=== PATIENT | male | born 1935 | race Caucasian/White ===

== ENCOUNTER 2016-07-30 13:11 | Outpatient (CLI) | payer OTHER, MEDICARE ==
--- NOTE | 2016-07-30 14:03 | DIAGNOSTIC IMAGING REPORT ---
PROCEDURE: XR CHEST 2 VIEW INDICATION: HISTORY OF SMOKING TECHNIQUE: PA and lateral view. COMPARISON: Chest x-ray 04/11/2014 FINDINGS: Lungs are clear. Mild cardiomegaly. Mediastinum and pulmonary vessels are normal. Mild degenerative changes of the spine. IMPRESSION: 1. Mild cardiomegaly
[2016-08-18] MEDS ORDERED: ASPIRIN325 MG PO (18:23)
[2016-08-18] MEDS ORDERED: CLOPIDOGREL75 MG PO (18:24)
[2016-08-18] MEDS ORDERED: TOPROL XL50 MG PO (18:24)
[2016-08-18] MEDS ORDERED: METFORMIN HCL500 MG PO (18:24)
[2016-08-18] MEDS ORDERED: TAMSULOSIN HCL0.4 MG PO (18:25)
[2016-08-18] MEDS ORDERED: LIPITOR20 MG PO (18:26)
[2016-08-18] MEDS ORDERED: FINASTERIDE5 MG PO (18:26)
[2016-08-18] MEDS ORDERED: BACLOFEN10 MG PO (18:27)
[2016-08-18] MEDS ORDERED: VITAMIN D-31000 UNIT PO (18:28)
[2016-08-18] MEDS ORDERED: TYLENOL325 MG PO (18:28)
[2016-08-18] MEDS ORDERED: LORATADINE10 MG PO (18:28)
[2016-08-18] MEDS ORDERED: LUTEIN1 CAP PO (18:29)
[2016-08-18] MEDS ORDERED: NORTRIPTYLINE H10 MG PO (18:29)
[2016-08-18] MEDS ORDERED: COQ-10100 MG PO (18:29)
[2016-08-18] MEDS ORDERED: PRESERVISION/LUTEIN PO (18:32)
[2016-08-18] MEDS ORDERED: LOTREL1 CA1 PO (18:33)
== END 2016-07-30 23:00 ==
LOC: XR SRH 13:11
DX: Z87.891 Personal history of nicotine dependence (principal); I51.7 Cardiomegaly

== ENCOUNTER 2016-08-23 07:57 | Day surgery (SDC) | payer OTHER, MEDICARE ==
[~2016-08-23 07:57] MED LIST: ASPIRIN325 MG PO; BACLOFEN10 MG PO; CLOPIDOGREL75 MG PO; COQ-10100 MG PO; FINASTERIDE5 MG PO; LIPITOR20 MG PO; LORATADINE10 MG PO; LOTREL1 CA1 PO; LUTEIN1 CAP PO; METFORMIN HCL500 MG PO; NORTRIPTYLINE H10 MG PO; PRESERVISION/LUTEIN PO; TAMSULOSIN HCL0.4 MG PO; TOPROL XL50 MG PO; TYLENOL325 MG PO; VITAMIN D-31000 UNIT PO
[2016-08-23] MEDS ORDERED: HYCET1 ML PO (11:23)
--- NOTE | 2016-08-23 11:24 | Provider's Discharge Care Plan ---
Problem, Goal, Plan Problem List 1. S/P LAP REPAIR BILAT INGUINAL HERNIAS (HESHAM) Goals: Improve disease control, Improve function, Therapeutic intervention Instructions: Follow up as directed, Take meds as directed
--- NOTE | 2016-08-23 11:53 | OPERATIVE REPORT ---
DATE OF SURGERY: 08/23/2016 SURGEON: Jamaal Henry III, MD SALES INTERN: None. PREOPERATIVE DIAGNOSIS: 1. Left inguinal hernia POSTOPERATIVE DIAGNOSIS: 1. Bilateral direct and indirect inguinal hernias PROCEDURE PERFORMED: 1. Laparoscopic repair of bilateral inguinal hernias: left, 13 x 12 cm mesh; right, 13 x 10 cm mesh placement (transabdominal preperitoneal repair [HESHAM]). ANESTHESIA: General endotracheal. ESTIMATED BLOOD LOSS: None. FLUIDS: 400 mL lactated Ringers. PATHOLOGY SPECIMEN: None. IMPLANTS/GRAFTS: Mesh, Covidien ProGrip on the left, 13 x 12 cm; on the right, 13 x 10 cm. INDICATIONS: The patient is an 80-year-old male with a progressively enlarging left groin bulge, referred to [facility]. He was noted to have a reducible left inguinal hernia and questionable right. Once he was cleared by his filler block inserter remover, he was scheduled first repair laparoscopically. SURGICAL FINDINGS: The patient was noted to have a left inguinal hernia, the indirect portion containing sigmoid. The patient was also noted to have a smaller direct component. On the right, he was noted to have an indirect hernia and a direct hernia as well. It was decided to repair both at the same time rather than risk a second anesthetic, because of his cardiac history. SURGICAL TECHNIQUE: The patient was brought to the operating room and placed in the dorsal supine position, where he underwent general endotracheal anesthesia by the anesthesiology department. After proper anesthesia had taken effect, the patient 's abdomen was prepped using Betadine and draped in a sterile fashion. An infraumbilical incision was made, carried down through skin and subcutaneous tissue. A Veress needle was inserted through this site, into the abdominal cavity and, after ascertaining its appropriate position with suction irrigation, pneumoperitoneum obtained using CO2 insufflation to approximately 14-15 mmHg pressure. Once this pressure was reached, the Veress needle was removed and a 10 mm trocar was introduced into the abdominal cavity. The trocar was removed, leaving the sleeve behind, through which a laparoscopic video camera was introduced into the abdominal cavity. Under direct visualization, a separate 10 mm trocar was placed in the left lower quadrant and a 5 mm trocar was placed in the right lower quadrant. Each entered the abdominal cavity under direct visualization. The trocars were removed, leaving the sleeves behind, through which laparoscopic instrumentation was introduced into the abdominal cavity. Very carefully, the sigmoid in the indirect inguinal hernia on the left was carefully reduced, after which the peritoneum overlying the hernia was incised using electrocautery nicko. This incision was carried out lateral to the lateral umbilical ligament on the left and out lateral and inferior to the iliac crest spine. Inferior peritoneal flap was created using a combination of blunt dissection and electrocautery. In the process, we were able to reduce the indirect hernia and identify Samy ligament and the vas. A piece of mesh was selected, cut in an ovoid fashion, measuring approximately 13 x 12 cm, placed in the preperitoneal space and placed in such a fashion that it would not shift. The mesh was the Covidien ProGrip. The inferior aspect of the peritoneal dissection was raised up over the mesh and sutured to the upper portion of the peritoneum using 3-0 Hem-o-Loc stitch in a continuous fashion. Once reperitonealized, our attention was then turned to the right groin. The right direct and indirect inguinal hernia were identified. The peritoneum overlying the hernias were incised using electrocautery nicko. This incision was carried out medially to the lateral umbilical ligament and out lateral and inferior to the anterosuperior iliac crest spine. The inferior peritoneal flap was created using a combination of blunt dissection and electrocautery. In the process, we were able to reduce the hernia, identify Samy ligament and the vas. A piece of mesh was selected. Again, the Covidien ProGrip mesh was selected, cut in an ovoid fashion, measuring approximately 13 x 10 cm. It was placed in the preperitoneal space and placed in a fashion so that it would not shift. The inferior peritoneal flap was then raised up over the mesh to reperitonealize it, attaching it to the upper portion of the peritoneum using the 3-0 Hem-o-Loc stitch. Once reperitonealized, the pneumoperitoneum was released and all trocars were removed from the abdominal cavity. All trocar sites were approximated using 4-0 subdermal Polysorb and Steri-Strips. A sterile pressure occlusive dressing was placed over each site. The patient tolerated the procedure well, was extubated and transferred to the recovery room in stable condition. There were no intraoperative or anesthetic complications.
== END 2016-08-23 15:30 | disposition home or self-care (01) ==
LOC: OR SRH 07:57 → OB SRH 08:00
PROVIDERS: Specialist
PROC: 0YUA4JZ Supplement Bilateral Inguinal Region with Synthetic Substitute, Percutaneous Endoscopic Approach (ICD-10-PCS; principal; 2016-08-23 09:15)
DX: K40.20 Bilateral inguinal hernia, without obstruction or gangrene, not specified as recurrent (principal); E11.9 Type 2 diabetes mellitus without complications; Z79.84 Long term (current) use of oral hypoglycemic drugs; J44.9 Chronic obstructive pulmonary disease, unspecified; Z86.73 Personal history of transient ischemic attack (TIA), and cerebral infarction without residual deficits; Z79.01 Long term (current) use of anticoagulants; Z79.82 Long term (current) use of aspirin